=== PATIENT | male | born 1995 | race Caucasian/White ===

== ENCOUNTER 2017-01-23 18:16 | Emergency (ER) | payer BC, OTHER ==
[2017-01-23] MEDS ORDERED: ONDANSETRON DISINTEGRATING 4 MG TAB PO ONE (18:43)
--- NOTE | 2017-01-23 18:44 | EDPHY ---
HPI/HX/ROS/PE/MDM Narrative: CHIEF COMPLAINT: Head injury HPI: The patient is a 21-year-old male who is healthy and has a history of a mild Chiari malformation. Yesterday he was snowboarding, not wearing a helmet when he caught an edge and fell on the snow, injuring the front part of his head. He felt fine yesterday but today feels "out of it ", nauseated. He denies change in vision, headache, neck pain or other injury. He has not vomited. He denies confusion or numbness, weakness or tingling. REVIEW OF SYSTEMS: Aside from elements discussed in the HPI, a comprehensive 10-point review of systems was reviewed and is negative. PMH: Chiari malformation. SOCIAL HISTORY: Single. Works for [employer]. Frequent traveler. PHYSICAL EXAM: General:Patient is alert, in no acute distress. ENT:Eyes are normal to inspection. ENT inspection normal. Neck: Normal inspection. Full range of motion. Respiratory:No respiratory distress. Breath sounds normal bilaterally. Cardiovascular: Regular rate and rhythm. Strong peripheral pulses. Normal cap refill. Abdomen:The abdomen is nontender to palpation. There are no peritoneal signs. There are normal bowel sounds. Back: Normal to inspection. No tenderness to palpation. Skin: Normal color. No rash. Warm and dry. Extremities: Normal appearance. Full range of motion. Neuro: Oriented x3. Normal motor function. Normal sensory function. Cranial nerves intact. Pronator drift normal. Normal finger-nose bilaterally. Normal gait. MDM: This is a young healthy male who presents with head injury and concussion like symptoms 24 hr after injury. I had extensive discussion with the patient and I see no red flags for serious head injury. The patient is interested in undergoing CT scan of his head, but I discussed with him the fact that he has already had 3 prior head CTs of last 2 years, making this the 4th, raises his risk for long-term complications of brain cancer. The patient declines CT head at this time. We discussed strict return precautions and he promises to return for any worsening of condition. He agrees with me that risks outweigh benefits of advanced imaging tonight. General Time Seen by Provider: 01/23/17 18:43 Allergies/Adverse Reactions: No Known Allergies Allergy (Unverified 12/01/12 17:53) Home Medications: Medication Instructions Recorded Miscellaneous Medical Supply [NO 12/01/12 HOME MEDS] Ondansetron Odt [Zofran Odt] 4 mg PO Q4PRN PRN #7 tab 01/23/17 Departure - Departure Disposition: Home, Routine, Self-Care Clinical Impression: Concussion Condition: Good Instructions: Concussion (ED) Additional Instructions: Follow-up with your primary doctor within 72 hours. Return to the Emergency Department for severe headache, vomiting, vision changes, confusion, fever or other concerns. Referrals: NONE *PRIMARY CARE P,. [Primary Care Provider] - As per Instructions Prescriptions: Ondansetron Odt [Zofran Odt] 4 mg PO Q4PRN PRN #7 tab PRN Reason: Nausea
[2017-01-23 19:40] VITALS: BP 128/79; PULSE 72; RESP 20; TEMP 98.1; O2SAT 96
== END 2017-01-23 19:10 | disposition home or self-care (01) ==
LOC: CED 18:16
DX: S06.0X0A Concussion without loss of consciousness, initial encounter (principal); V00.311A Fall from snowboard, initial encounter; Y99.8 Other external cause status; Y93.23 Activity, snow (alpine) (downhill) skiing, snowboarding, sledding, tobogganing and snow tubing